=== PATIENT | male | born 1955 | race Caucasian/White ===

== ENCOUNTER → 2018-04-19 | Outpatient (CLI) | payer OTHER ==
[2018-04-19 07:09] LABS: ABSOLUTE BASOPHILS 0.1 thou/uL (0.0-0.2); ABSOLUTE EOSINOPHILS 0.3 thou/uL (0.0-0.7); ABSOLUTE LYMPHOCYTES 1.6 thou/uL (0.8-5.3); ABSOLUTE MONOCYTES 0.8 thou/uL (0.0-1.2); ABSOLUTE NEUTROPHILS 4.5 thou/uL (1.6-8.1); BASOPHILS 0.9 %; EOSINOPHILS 4.7 %; HEMATOCRIT 45.8 % (42.0-52.0); HEMOGLOBIN 15.8 gm/dL (14.0-18.0); LYMPHOCYTES 21.5 %; MCH 32.5 pg (26.0-34.0); MCHC 34.5 g/dL (28.0-37.0); MCV 94.2 fL (80.0-100.0); MONOCYTES 11.1 %; MPV 7.3 fl. (7.2-11.1); NUCLEATED RBCS 0 /100WBC; PLATELET COUNT* 269 thou/uL (150-400); POLYS 61.8 %; RBC 4.87 mil/uL (4.50-6.00); RDW-CV 13.2 % (10.5-14.5); WBC 7.3 thou/uL (4.0-11.0)
== END ==
LOC: M.LAB 04:51
PROVIDERS: Anesthesiology
DX: E83.119 Hemochromatosis, unspecified (principal)

== ENCOUNTER → 2020-07-25 | Outpatient (CLI) | payer OTHER | LOC: M.RAD 16:36 | PROVIDERS: ATTEND Internal Medicine | DX: M25.512 Pain in left shoulder (principal); G89.29 Other chronic pain ==